=== PATIENT | male | born 1960 | race Caucasian/White ===

== ENCOUNTER 2020-07-22 12:16 | Emergency (ER) | payer OTHER ==
[~2020-07-22] VITALS: Ht 188 cm; Wt 74.8 kg
[2020-07-22] MEDS ORDERED: CLINDAMYCIN HC300 MG PO (14:20)
[2020-07-22 15:09] VITALS: BP 139/82
== END 2020-07-22 15:09 | disposition home or self-care (01) ==
LOC: ER 12:16
DX: L03.211 Cellulitis of face (principal); L25.9 Unspecified contact dermatitis, unspecified cause; T50.905A Adverse effect of unspecified drugs, medicaments and biological substances, initial encounter; K21.9 Gastro-esophageal reflux disease without esophagitis; E78.5 Hyperlipidemia, unspecified; Y92.89 Other specified places as the place of occurrence of the external cause